=== PATIENT | male | born 1985 | race Hispanic/Latino ===

== ENCOUNTER 2023-12-04 23:36 | Emergency (ER) | payer OTHER, SELFPAY ==
[2023-12-04 23:37] VITALS: BMI 30.6
[2023-12-04 23:48] VITALS: BP 144/79
[2023-12-05 00:12] VITALS: BP 125/76
[2023-12-05 01:00] VITALS: BP 92/76
[2023-12-05 02:28] VITALS: BP 111/75
[2023-12-05] MEDS: TORADOL 15 MG IV (02:35)
--- NOTE | 2023-12-05 02:35 | ED.GENMED ---
History of Present Illness
General
Chief Complaint: Back Pain
Source: patient
Exam Limitations: none
Time Seen by Provider: 12/05/23 01:29
Nursing documentation reviewed up to this point in time: agreed with
History of Present Illness
History of Present Illness:
Patient who works as a director music, presents ED with after waking up in the morning 2 days ago, with left upper back pain, which has persisted. Pain worse when lifting left arm and with deep inspiration. Patient reports intermittent cough, not worsening.
Denies fever or chills. Denies shortness of breath. Denies nausea or vomiting. Denies trauma. Denies recent illness. Denies recent change in level of activities. Denies previous history of similar symptoms. Denies recent travel or surgery.
Denies leg pain or swelling. Denies family history of blood clots. Denies smoking. Patient has taken Tylenol at home with minimal relief in symptoms.
Review of Systems
Review of Systems
Allergies reviewed?: Yes
All Other Systems: ROS reviewed and negative except as documented in HPI and ROS
Constitutional: Reports no symptoms; Denies fever
Respiratory: Reports no symptoms; Denies trouble breathing
Cardiac: Reports no symptoms; Denies chest pain
ABD/GI: Reports no symptoms
Musculoskeletal: Reports back pain
Skin: Reports no symptoms
Neurological: Reports no symptoms
Phy Exam
Physical Exam
Physical Exam:
Physical Exam
General: mild distress, not acutely ill. afebrile
Head: nc/at. eomi
Neck: supple. no meningeal signs.
Heart: s1/s2 regular rate and rhythm, no murmur. equal radial pulses.
Lungs: no acute respiratory distress. clear bilaterally. chest wall nontender to palpation.
Abdomen: normal bowel sounds. not tender.
Back: no midline tenderness. mild left upper back tenderness, without ecchymosis/swelling/erythema.
Neuro: alert and oriented. no focal neurological deficits
Skin: no rash
Psychiatric: well kept. interactive and cooperative
Extremities: no edema. no calf tenderness.
Course
Orders/Labs/Results
Orders:
Orders
12/04/23 23:52
EKG [Electrocardiogram (*1)] Urgent
Reason for Study: Chest Pain
Other Reason for Exam: l upper back pain,
EKG- Treatment ONCE
12/05/23 01:29
CR Chest - 2 Views Urgent
Comment:
Reason For Exam: upper back pain
12/05/23 01:44
Electrocardiogram (*1) Urgent
Reason for Study: Shortness of Breath
EKG- Treatment ONCE
Ketorolac [Toradol] 15 mg IV NOW STA
12/05/23 02:29
Basic Metabolic Panel Urgent
Complete Blood Count/With Diff Urgent
D-Dimer Urgent
Troponin I Urgent
Abnormal Lab Results
12/05/23
02:29
MCV 79.3 L fL
(80.0-94.0)
Eosinophils % 6.5 H %
(0-6)
BUN 25 H mg/dl
(9-20)
Glucose 113 H mg/dl
(70-99)
12/05/23 02:29
12/05/23 02:29
Vital Signs
Initial and Last Documented VS:
Initial Vital Signs
Temp Pulse Resp BP Pulse Ox
98.2 F 64 15 144/79 98
12/04/23 23:48 12/04/23 23:48 12/04/23 23:48 12/04/23 23:48 12/04/23 23:48
Last Documented Vital Signs
Temp Pulse Resp BP Pulse Ox
98.2 F 70 19 131/85 97
12/04/23 23:48 12/05/23 01:51 12/05/23 01:51 12/05/23 03:14 12/05/23 03:15
MDM/Problems Addressed
MDM/Problems Addressed:
Patient with an unremarkable workup in ED, including blood work, EKG, and chest x-ray. History and exam consistent with likely musculoskeletal pain. Will advise rest, warm compress, along with NSAIDs, as well as PCP follow-up as an outpatient.
Advised to return to ED with worsening symptoms. Patient otherwise is afebrile, hemodynamically stable, and appears comfortable at time of discharge.
*Critical Care Note
Total Time (30-74mins, 75-104mins- exclusive of procedures): Not Applicable
ED Attending Note
-
Portions of this chart may have been created with voice recognition software.� Occasional wrong word or��sound alike� substitutions may have occurred due to the inherent limitations of voice recognition software.
Discharge Plan
Departure
Patient Disposition: Home (Routine Discharge)
Date of Disposition: 12/05/23
Time of Disposition: 03:07
Patient with high blood pressure during this ER visit?: Yes
Discharge Problem:
Back pain
Instructions: Upper Back Pain (DC)
Referrals:
Fatou Gore NP [Family Provider] -
Activity Restrictions/Additional Instructions:
As discussed, please follow-up with your primary care physician for reevaluation. In the meantime, recommend rest, anti-inflammatory medications such as Motrin, as well as warm compress application.
Interventions
Interventions:
*Risk Screen - Suicide Last Done: 12/05/23 00:18
*General Assessment Last Done: 12/05/23 00:18
*Neglect/Abuse Screening Last Done: 12/05/23 00:18
ED- Fall Risk Assessment Last Done: 12/05/23 03:19
*ED COVID-19 Vaccine History Last Done: 12/05/23 00:18
*Nursing Disposition Last Done: 12/05/23 03:19
ED-Musculoskeletal Assessment Last Done: 12/05/23 00:20
Discharge Date and Time
Discharge Date/Time: 12/05/23 03:20
Print Language: SERBIAN
[2023-12-05 02:37] LABS: % Basophils 1.1 % (0-2); % Eosinophils 6.5 % (0-6); % Immature Granulocytes 0.2 % (0-0.5); % Lymphocytes 31.3 % (20.5-51.1); % Monocytes 4.2 % (1.7-9.3); % Neutrophils 56.7 % (42.2-75.2); Absolute Basophils 0.1 10^3/uL (0-0.2); Absolute Eosinophils 0.7 10^3/uL (0-0.7); Absolute Lymphocytes 3.2 10^3/uL (1.2-3.4); Absolute Monocytes 0.4 10^3/uL (0.1-0.6); Absolute Neutrophils 5.7 10^3/uL (1.4-6.5); Hematocrit 40.6 % (39.0-52.0); Hemoglobin 14.4 g/dL (13.0-18.0); Mean Corp Hgb Conc. 35.5 g/dL (33.0-37.0); Mean Corpuscular Hgb 28.1 pg (27.0-31.0); Mean Corpuscular Volume 79.3 fL (80.0-94.0); Mean Platelet Volume 9.7 fL (7.4-10.4); Nucleated Red Blood Cells % 0 % (-); Platelet Count 224 10^3/uL (130-400); Red Blood Cell Count 5.12 10^6/uL (4.70-6.10); Red Cell Dist. Width 12.3 % (11.5-14.5); White Blood Cell Count 10.1 10^3/uL (4.8-10.8)
[2023-12-05 02:49] LABS: Blood Urea Nitrogen 25 mg/dl (9-20); Calcium 9.6 mg/dl (8.4-10.2); Carbon Dioxide 26 mmol/L (22-30); Chloride 106 mmol/L (98-107); D-Dimer < 0.27 ug/mlFEU (0.00-0.50); Estimated Creatinine Clearance 104 ml/min; Glucose 113 mg/dl (70-99); Potassium 3.5 mmol/L (3.5-5.1); Sodium 142 mmol/L (135-145); eGFR > 60.00
[2023-12-05 03:00] LABS: Troponin I < 0.012 ng/ml
[2023-12-05 03:14] VITALS: BP 131/85
== END 2023-12-05 03:20 | disposition home or self-care (01) ==
LOC: EMR 23:36
PROVIDERS: EMERGENCY PHYSICIAN Emergency Medicine; FAMILY PHYSICIAN Nurse Practitioner Adult Health
DX: M54.9 Dorsalgia, unspecified (principal)
CPT/HCPCS: 99283; 96374; 71046; 80048; 84484; 85025; 85379; 93005

== ENCOUNTER → 2024-10-13 09:35 | Outpatient (REF) | payer OTHER, SELFPAY ==
[2024-10-13 10:26] LABS: Hematocrit 44.2 % (39.0-52.0); Hemoglobin 15.6 g/dL (13.0-18.0); Mean Corp Hgb Conc. 35.3 g/dL (33.0-37.0); Mean Corpuscular Hgb 28.2 pg (27.0-31.0); Mean Corpuscular Volume 79.8 fL (80.0-94.0); Platelet Count 220 10^3/uL (130-400); Red Blood Cell Count 5.54 10^6/uL (4.70-6.10); Red Cell Dist. Width 12.2 % (11.5-14.5)
[2024-10-13 10:56] LABS: ALT (SGPT) 27 U/L (0-50); AST (SGOT) 18 U/L (17-59); Albumin 5.1 g/dl (3.5-5.0); Alkaline Phosphatase 44 U/L (38-126); Blood Urea Nitrogen 21 mg/dl (9-20); Calcium 9.6 mg/dl (8.4-10.2); Carbon Dioxide 30 mmol/L (22-30); Chloride 102 mmol/L (98-107); Glucose 91 mg/dl (70-99); Potassium 4.2 mmol/L (3.5-5.1); Sodium 142 mmol/L (135-145); Total Protein 7.7 g/dl (6.3-8.2); eGFR > 60.00
== END ==
LOC: CLINIC 09:35
PROVIDERS: ATTENDING PHYSICIAN Nurse Practitioner Adult Health
DX: J45.901 Unspecified asthma with (acute) exacerbation (principal)
CPT/HCPCS: 36415; 80053; 85027

== ENCOUNTER → 2025-04-24 09:29 | Outpatient (REF) | payer OTHER, SELFPAY ==
[2025-04-24 12:03] LABS: HDL Cholesterol 44 mg/dl; LDL Cholesterol, Calculated 135 mg/dl; Very Low Density Lipoprotein 23 mg/dl (0-30)
== END ==
LOC: REG 09:29
PROVIDERS: ATTENDING PHYSICIAN Nurse Practitioner Adult Health
DX: Z13.220 Encounter for screening for lipoid disorders (principal)
CPT/HCPCS: 36415; 80061